=== PATIENT | female | born 1940 | race Asian ===

== ENCOUNTER 2018-07-17 15:17 | Inpatient (IN) | payer MEDICARE, OTHER ==
[~2018-07-17] VITALS: Ht 160 cm; Wt 41.7 kg
--- NOTE | 2018-07-17 15:29 | NUR ---
Patient brought in by EMS from [facility] in third degree heart block. Patient arrives awake, alert and oriented x4, pleasant and answering questions appropriately. IV access established prior to arrival, pacer pads placed on patient and attached to zoll, continuous blood pressure, SPO2 and cardiac monitoring in place. Plan of care discussed with patient including when to call RN. Patient does not appear to be in distress at this time, call gonzalez within reach. Report given to KARLI Crowder. Care transferred at this time.
[2018-07-17] MEDS ORDERED: SODIUM CHLORIDE FLUSH 10ML SYR IVF ONE (15:30)
[2018-07-17] MEDS ORDERED: ASPI81TA45 PO (15:32)
--- NOTE | 2018-07-17 15:40 | NUR ---
BEDSIDE REPORT FROM VANNESA CALVILLO PATIENT ON DISTRICT [employer] A PACER PADS CONNECTED TO ZOLL HR NOTED TO BE 46, B/P 176/53 MENTATION/COLOR WNL COMPLAINING OF RIGHT SHOULDER PAIN AT 5/10
--- NOTE | 2018-07-17 15:53 | NUR ---
DR. ANDRES WITH CADIOLOGY AT BEDSIDE
[2018-07-17 15:55] LABS: TROPONIN I 0.051 ng/mL (0.000-0.045)
[2018-07-17] MEDS ORDERED: CEFAZOLIN PMX 1GM/50ML 50 ML IVPB ONE (16:00)
--- NOTE | 2018-07-17 16:03 | NUR ---
up to bedside commode w/ no dizziness/nausea or vital sign changes voided 300ml- ua sent
[2018-07-17 16:26] LABS: BASOPHILS # (AUTO) 0.04 x10^3/uL (0-0.1); BASOPHILS % (AUTO) 1 % (0-1); EOSINOPHILS # (AUTO) 0.01 x10^3/uL (0-0.4); EOSINOPHILS % (AUTO) 0 % (1-7); LYMPHOCYTES # (AUTO) 1.89 x10^3/uL (1-3.4); LYMPHOCYTES % (AUTO) 19 % (22-44); MD NO; MEAN CORPUSCULAR HEMOGLOBIN 30.9 pg (27.0-34.8); MEAN CORPUSCULAR HGB CONC 32.8 g/dL (32.4-35.8); MEAN CORPUSCULAR VOLUME 94.2 fL (80-100); MEAN PLATELET VOLUME 8.5 fL (7.4-10.4); MONOCYTES % (AUTO) 6 % (2-9); NEUTROPHILS # (AUTO) 7.23 x10^3/uL (1.8-6.8); NEUTROPHILS % (AUTO) 74 % (42-75); PLATELET COUNT 283 x10^3/uL (130-400); RED BLOOD COUNT 4.52 x10^6/uL (3.82-5.3); RED CELL DISTRIBUTION WIDTH 12.8 % (9.6-15.2)
[2018-07-17] MEDS ORDERED: hydrALAzine 20 MG/ML, 1ML IV PRN (16:30)
[2018-07-17 16:34] LABS: ANION GAP 8 mmol/L (5-15); CALCIUM 8.4 mg/dL (8.5-10.1); CHLORIDE 103 mmol/L (98-107); CREATININE 0.61 mg/dL (0.55-1.02)
[2018-07-17] MEDS ORDERED: ASPIRIN 81 MG TABLET CHEW ONE ×2 (16:50→17:24)
[2018-07-17] MEDS ORDERED: ASPIRIN 81 MG TABLET CHEW PO ONE (17:00)
[2018-07-17] MEDS ORDERED: HYDROcodone/APAP 5/325 TABLET PO ONE (17:00)
[2018-07-17 17:06] LABS: MICROSCOPIC INDICATED
[2018-07-17] MEDS ORDERED: HYDROcodone/APAP 5/325 TABLET ONE (17:24)
[2018-07-17] MEDS ORDERED: LISINOPRIL 5 MG TABLET ONE (17:29)
[2018-07-17] MEDS ORDERED: ONDANSETRON ODT 4 MG ONE (17:29)
[2018-07-17] MEDS: LISINOPRIL 5 MG TABLET PO SCH ×2 (17:30→21:11)
--- NOTE | 2018-07-17 17:32 | NUR ---
MEDICATED PER EMAR: ASA, NORCO 5, ZOFRAN AND LISNIPRIL 5
[2018-07-17 17:57] VITALS: BP 184/59
[2018-07-17] MEDS ORDERED: ONDANSETRON ODT 4 MG PO ONE (18:00)
[2018-07-17 19:18] VITALS: BP 155/53
[2018-07-17] MEDS: SODIUM CHLORIDE 0.9% 1,000 ML IV SCH ×2 (19:59→23:47)
[2018-07-17] MEDS: SODIUM CHLORIDE FLUSH 10ML SYR IVF SCH (21:11)
[2018-07-17 21:24] LABS: TROPONIN I 0.069 ng/mL (0.000-0.045)
[2018-07-18 00:04] VITALS: BP 135/51
[2018-07-18 03:59] LABS: TROPONIN I 0.035 ng/mL (0.000-0.045)
[2018-07-18 07:33] VITALS: BP 130/56
[2018-07-18] MEDS: SODIUM CHLORIDE 0.9% 1,000 ML IV SCH ×2 (08:45→15:57)
[2018-07-18] MEDS: SODIUM CHLORIDE FLUSH 10ML SYR IVF SCH ×3 (08:50→20:17)
[2018-07-18] MEDS: LISINOPRIL 5 MG TABLET PO SCH ×2 (09:01→20:17)
[2018-07-18 13:51] VITALS: BP 159/57
[2018-07-18] MEDS ORDERED: MIDAZOLAM 1 MG/ML, 2ML ONE (15:14)
[2018-07-18] MEDS ORDERED: FENTANYL PF 100 MCG/2ML ONE (15:14)
[2018-07-18] MEDS ORDERED: LIDOCAINE 2%, 20ML ONE (15:14)
[2018-07-18] MEDS ORDERED: CEFAZOLIN 1,000 MG ONE (15:14)
[2018-07-18] MEDS ORDERED: CEFAZOLIN PMX 1GM/50ML 50 ML ONE (15:14)
[2018-07-18] MEDS ORDERED: HYDROcodone/APAP 5/325 TABLET PO PRN (16:30)
[2018-07-18] MEDS ORDERED: ACETAMINOPHEN 325 MG TABLET PO PRN (16:30)
[2018-07-18] MEDS ORDERED: HOLD MEDICATION MC PRN (16:30)
[2018-07-18 18:52] VITALS: BP 173/75
[2018-07-19] MEDS: CEFAZOLIN PMX 1GM/50ML 50 ML IVPB SCH ×3 (00:11→15:22)
[2018-07-19 01:06] VITALS: BP 145/65
[2018-07-19 08:07] VITALS: BP 183/61
[2018-07-19] MEDS: LISINOPRIL 5 MG TABLET PO SCH (08:22)
[2018-07-19] MEDS: SODIUM CHLORIDE FLUSH 10ML SYR IVF SCH ×2 (08:24)
[2018-07-19] MEDS ORDERED: LISI-170 PO (09:28)
[2018-07-19 11:09] VITALS: BP 179/72
[2018-07-19 14:56] VITALS: BP 155/68
[2018-07-20] MEDS ORDERED: LISINOPRIL 20 MG TABLET PO SCH (09:00)
== END 2018-07-19 16:40 | disposition home or self-care (01) | DRG 242 ==
LOC: ED 17:01 → EDIP 17:05 → 5SO 17:46 → DCLOUNGE 07-19 16:25
PROVIDERS: ADMIT Internal Medicine Cardiovascular Disease; ATTEND Internal Medicine Cardiovascular Disease
PROC: 0JH606Z Insertion of Pacemaker, Dual Chamber into Chest Subcutaneous Tissue and Fascia, Open Approach (ICD-10-PCS; principal; 2018-07-18)
PROC: 02HK3JZ Insertion of Pacemaker Lead into Right Ventricle, Percutaneous Approach (ICD-10-PCS; 2018-07-18)
PROC: 02H63JZ Insertion of Pacemaker Lead into Right Atrium, Percutaneous Approach (ICD-10-PCS; 2018-07-18)
DX: I44.2 Atrioventricular block, complete (principal); I21.A1 Myocardial infarction type 2; I45.2 Bifascicular block; I10 Essential (primary) hypertension; I11.9 Hypertensive heart disease without heart failure; I27.20 Pulmonary hypertension, unspecified; I08.1 Rheumatic disorders of both mitral and tricuspid valves
CPT/HCPCS: 33208; 36415; 71045; 80048; 81001; 84484; 85025; 93005; 93306; 99156; 99157; 99285; C1779; C1785; C1892; G0378; J0690; J2250; J3010; Q0162; J0360; J7030